=== PATIENT | female | born 1960 | race Caucasian/White ===

== ENCOUNTER 2021-01-15 00:53 | Inpatient (IN) | payer MEDICAID ==
[~2021-01-15] VITALS: Ht 154.9 cm; Wt 64.0 kg
[2021-01-15] MEDS ORDERED: QUET25TA PO (03:59)
[2021-01-15] MEDS ORDERED: OLAN5TAB2 PO (03:59)
[2021-01-15 06:13] LABS: GLUCOMETER DEV NAME(LOC) BV3S.; GLUCOSE,POINT OF CARE 202 MG/DL (70-110)
[2021-01-15 06:21] VITALS: BP 133/86
[2021-01-15] MEDS ORDERED: MAG HYDROX/AL HYDROX/SIMETH 30 ML SUSP UDCUP PO PRN (06:45)
[2021-01-15] MEDS ORDERED: DOCUSATE SODIUM 100 MG CAPSULE PO PRN ×2 (07:45→08:00)
[2021-01-15] MEDS ORDERED: MAGNESIUM HYDROXIDE SUSPENSION 30 ML UDCUP PO PRN (08:00)
[2021-01-15] MEDS ORDERED: GuaiFENesin/D-METHORPHAN [SUGAR-FREE] 200-20MG/10 ML SYRUP UDCUP PO PRN (08:00)
[2021-01-15] MEDS ORDERED: NICOTINE 14 MG/24 HOUR PATCH TD PRN (08:00)
[2021-01-15] MEDS ORDERED: LOPERAMIDE HCL 2 MG CAPSULE PO PRN (08:00)
[2021-01-15] MEDS ORDERED: MAG HYDROX/AL HYDROX/SIMETH ES 30 ML SUSPENSION UDCUP PO PRN (08:00)
[2021-01-15] MEDS ORDERED: ALBUTEROL SULFATE HFA 90 MCG/PUFF 8 GM INHALER IH PRN (08:00)
[2021-01-15] MEDS ORDERED: IBUPROFEN 400 MG TABLET PO PRN (08:00)
[2021-01-15] MEDS ORDERED: ACETAMINOPHEN 325 MG TABLET PO PRN (08:00)
[2021-01-15] MEDS ORDERED: PETROLATUM,WHITE 28 GM JELLY TP PRN (08:00)
[2021-01-15] MEDS ORDERED: CloNIDine HCL 0.1 MG TABLET PO PRN (08:00)
[2021-01-15 08:18] VITALS: BP 124/74
[2021-01-15] MEDS: OLANZapine 5 MG TABLET PO SCH ×2 (11:03→19:04)
[2021-01-15] MEDS: QUEtiapine FUMARATE 25 MG TABLET PO PRN ×2 (11:03→19:33)
[2021-01-15] MEDS ORDERED: INFLUENZA VIRUS VACCINE QVS 2020-21 (6MO+)/PF 60 MCG/0.5 ML SYRINGE IM ONE (12:00)
[2021-01-15] MEDS ORDERED: PNEUMOCOCCAL VACCINE POLYVALENT 0.5 ML VIAL [PPSV23] IM ONE (12:00)
[2021-01-15] MEDS ORDERED: QUEtiapine FUMARATE 100 MG TABLET PO ONE (13:45)
[2021-01-15 16:16] VITALS: BP 131/74
[2021-01-15] MEDS: LORazepam 1 MG TABLET PO PRN (19:31)
[2021-01-15 23:58] VITALS: BP 120/69
[2021-01-16 05:42] VITALS: BP 121/68
[2021-01-16 07:42] LABS: BASOPHILS % (AUTO) 0.7 % (0.0-2.0); EOSINOPHILS % (AUTO) 2.1 % (1.0-6.0); HEMATOCRIT 38.5 % (36-46); HEMOGLOBIN 12.9 g/dL (12.0-16.0); LYMPHOCYTES # (AUTO) 1.3 K/uL (1.0-4.8); LYMPHOCYTES % (AUTO) 26.3 % (22.0-44.0); MEAN CORPUSCULAR HEMOGLOBIN 30.9 pg (26.0-34.0); MEAN CORPUSCULAR HGB CONC 33.6 G/dL (31.0-37.0); MEAN CORPUSCULAR VOLUME 92 fL (80-100); MONOCYTES # (AUTO) 0.3 K/uL (0.1-1.0); MONOCYTES % (AUTO) 5.1 % (2.0-9.0); NEUTROPHILS # (AUTO) 3.3 K/uL (1.8-7.7); NEUTROPHILS % (AUTO) 65.8 % (40.0-70.0); PLATELET COUNT (AUTO) 166 K/uL (150-450); RED BLOOD CELL COUNT(AUTO) 4.19 MIL/uL (4.00-5.20); RED CELL DISTRIBUTION WIDTH 12.8 % (11.5-14.5)
[2021-01-16 07:54] LABS: HEMOGLOBIN A1C 8.4 % (3.8-5.6)
[2021-01-16 08:05] LABS: ALBUMIN 4.3 g/dL (3.4-5.0); BILIRUBIN,TOTAL 0.4 mg/dL (0.1-1.0); CALCIUM, TOTAL 9.7 mg/dL (8.8-10.5); CHOL/HDL RATIO 2.7 (3.9-5.7); CREATININE 1.32 mg/dL (0.60-1.30); FREE T4 (FREE THYROXINE) 1.03 ng/dL (0.76-1.46); POTASSIUM 5.2 mmol/L (3.5-5.1); THYROID STIMULATING HORMONE 3.22 uIU/mL (0.36-3.74); TOTAL PROTEIN, SERUM 8.4 g/dL (6.4-8.2)
[2021-01-16 08:09] VITALS: BP 153/77
[2021-01-16] MEDS: OLANZapine 5 MG TABLET PO SCH ×2 (08:24→16:07)
[2021-01-16] MEDS: LORazepam 1 MG TABLET PO PRN ×2 (08:24→16:08)
[2021-01-16] MEDS ORDERED: SODIUM POLYSTYRENE SULFONATE 15 GM/60 ML SUSPENSION BOTTLE PO ONE (09:00)
[2021-01-16] MEDS ORDERED: GLUCAGON,HUMAN RECOMBINANT 1 MG VIAL IM PRN (11:30)
[2021-01-16] MEDS ORDERED: INSULIN LISPRO 100 UNITS/ML SQ ONE ×2 (11:30→21:15)
[2021-01-16 12:26] LABS: GLUCOMETER DEV NAME(LOC) BV3S.; GLUCOSE,POINT OF CARE 457 MG/DL (70-110)
[2021-01-16 14:22] LABS: GLUCOMETER DEV NAME(LOC) BV3S.; GLUCOSE,POINT OF CARE 382 MG/DL (70-110)
[2021-01-16 14:22] LABS: GLUCOMETER DEV NAME(LOC) BV3S.; GLUCOSE,POINT OF CARE 108 MG/DL (70-110)
[2021-01-16 16:08] VITALS: BP 134/57
[2021-01-16 16:18] LABS: GLUCOMETER DEV NAME(LOC) BV3S.; GLUCOSE,POINT OF CARE 96 MG/DL (70-110)
[2021-01-16 20:55] LABS: GLUCOMETER DEV NAME(LOC) BV3S.; GLUCOSE,POINT OF CARE 430 MG/DL (70-110)
[2021-01-16] MEDS ORDERED: INSULIN GLARGINE,HUM.REC.ANLOG 100 UNITS/ML SQ ONE (21:15)
[2021-01-16] MEDS: ZOLPIDEM TARTRATE 10 MG TABLET PO PRN (22:05)
[2021-01-16 22:07] LABS: GLUCOMETER DEV NAME(LOC) BV3S.; GLUCOSE,POINT OF CARE 284 MG/DL (70-110)
[2021-01-16 22:54] LABS: GLUCOMETER DEV NAME(LOC) BV3S.; GLUCOSE,POINT OF CARE 116 MG/DL (70-110)
[2021-01-17 00:05] VITALS: BP 126/62
[2021-01-17] MEDS: QUEtiapine FUMARATE 25 MG TABLET PO PRN ×2 (03:01→21:10)
[2021-01-17] MEDS: INSULIN LISPRO 100 UNITS/ML SQ PRN ×2 (06:16→17:06)
[2021-01-17 06:22] LABS: GLUCOMETER DEV NAME(LOC) BV3S.; GLUCOSE,POINT OF CARE 247 MG/DL (70-110)
[2021-01-17 07:38] LABS: POTASSIUM 5.5 mmol/L (3.5-5.1)
[2021-01-17 07:59] LABS: HEMOGLOBIN A1C 8.3 % (3.8-5.6)
[2021-01-17] MEDS: LORazepam 1 MG TABLET PO PRN (08:02)
[2021-01-17] MEDS: OLANZapine 5 MG TABLET PO SCH (08:03)
[2021-01-17 08:08] VITALS: BP 155/85
[2021-01-17] MEDS ORDERED: DiphenhydrAMINE HCL 50 MG/ML VIAL ONE (09:58)
[2021-01-17] MEDS ORDERED: LORazepam 2 MG/ML VIAL IM ONE (10:00)
[2021-01-17] MEDS ORDERED: DiphenhydrAMINE HCL 50 MG/ML VIAL IM ONE (10:00)
[2021-01-17] MEDS ORDERED: SitaGLIPtin PHOSPHATE 25 MG TABLET PO SCH (10:00)
[2021-01-17] MEDS ORDERED: HALOPERIDOL LACTATE 5 MG/ML VIAL IM ONE (10:00)
[2021-01-17] MEDS: AmLODIPine BESYLATE 10 MG TABLET PO SCH (10:24)
[2021-01-17] MEDS ORDERED: INSULIN LISPRO 100 UNITS/ML SQ ONE (11:45)
[2021-01-17 11:53] LABS: GLUCOMETER DEV NAME(LOC) BV3S.; GLUCOSE,POINT OF CARE 511 MG/DL (70-110)
[2021-01-17 15:05] LABS: GLUCOMETER DEV NAME(LOC) BV3S.; GLUCOSE,POINT OF CARE 102 MG/DL (70-110)
[2021-01-17 16:03] VITALS: BP 135/65
[2021-01-17] MEDS: GlipiZIDE 10 MG TABLET PO SCH (16:18)
[2021-01-17] MEDS: SitaGLIPtin PHOSPHATE 25 MG TABLET PO SCH (16:19)
[2021-01-17 16:29] LABS: GLUCOMETER DEV NAME(LOC) BV3S.; GLUCOSE,POINT OF CARE 147 MG/DL (70-110)
[2021-01-17] MEDS: OLANZapine 10 MG TABLET PO SCH (20:34)
[2021-01-17] MEDS: ZOLPIDEM TARTRATE 10 MG TABLET PO PRN (20:34)
[2021-01-17 20:42] LABS: GLUCOMETER DEV NAME(LOC) BV3S.; GLUCOSE,POINT OF CARE 105 MG/DL (70-110)
[2021-01-17] MEDS ORDERED: INSULIN GLARGINE,HUM.REC.ANLOG 100 UNITS/ML SQ SCH (21:00)
[2021-01-18 01:03] VITALS: BP 122/74
[2021-01-18] MEDS: ONDANSETRON HCL 4 MG TABLET PO PRN (05:32)
[2021-01-18] MEDS: INSULIN LISPRO 100 UNITS/ML SQ PRN ×3 (05:45→20:45)
[2021-01-18 05:51] LABS: GLUCOMETER DEV NAME(LOC) BV3S.; GLUCOSE,POINT OF CARE 339 MG/DL (70-110)
[2021-01-18] MEDS: GlipiZIDE 10 MG TABLET PO SCH ×2 (06:42→16:14)
[2021-01-18] MEDS: LORazepam 1 MG TABLET PO PRN ×3 (06:57→21:14)
[2021-01-18 08:01] LABS: CALCIUM, TOTAL 9.4 mg/dL (8.8-10.5); CREATININE 1.36 mg/dL (0.60-1.30); POTASSIUM 4.9 mmol/L (3.5-5.1)
[2021-01-18] MEDS: AmLODIPine BESYLATE 10 MG TABLET PO SCH (08:02)
[2021-01-18] MEDS: SitaGLIPtin PHOSPHATE 25 MG TABLET PO SCH (08:02)
[2021-01-18] MEDS: QUEtiapine FUMARATE 25 MG TABLET PO PRN ×2 (08:02→15:55)
[2021-01-18 08:06] VITALS: BP 144/79
[2021-01-18 11:50] LABS: GLUCOMETER DEV NAME(LOC) BV3S.; GLUCOSE,POINT OF CARE 449 MG/DL (70-110)
[2021-01-18] MEDS ORDERED: INSULIN LISPRO 100 UNITS/ML SQ ONE (12:15)
[2021-01-18] MEDS ORDERED: DEXTROSE 50%-WATER 25 GM/50 ML SYRINGE IVP PRN (12:30)
[2021-01-18 16:05] VITALS: BP 112/70
[2021-01-18 16:57] LABS: GLUCOMETER DEV NAME(LOC) BV3S.; GLUCOSE,POINT OF CARE 194 MG/DL (70-110)
[2021-01-18 20:23] LABS: GLUCOMETER DEV NAME(LOC) BV3S.; GLUCOSE,POINT OF CARE 259 MG/DL (70-110)
[2021-01-18] MEDS: OLANZapine 10 MG TABLET PO SCH (20:41)
[2021-01-18] MEDS: QUEtiapine FUMARATE 300 MG TABLET PO SCH (20:41)
[2021-01-18] MEDS: LamoTRIgine 100 MG TABLET PO SCH (20:41)
[2021-01-18] MEDS ORDERED: INSULIN GLARGINE,HUM.REC.ANLOG 100 UNITS/ML SQ SCH (21:00)
[2021-01-19 00:59] VITALS: BP 104/76
[2021-01-19] MEDS: ONDANSETRON HCL 4 MG TABLET PO PRN (05:52)
[2021-01-19] MEDS: GlipiZIDE 10 MG TABLET PO SCH ×2 (05:52→16:27)
[2021-01-19] MEDS: LEVOTHYROXINE SODIUM 50 MCG TABLET PO SCH (05:52)
[2021-01-19] MEDS: INSULIN LISPRO 100 UNITS/ML SQ PRN ×3 (05:58→21:53)
[2021-01-19 06:07] LABS: GLUCOMETER DEV NAME(LOC) BV3S.; GLUCOSE,POINT OF CARE 286 MG/DL (70-110)
[2021-01-19 08:00] VITALS: BP 112/70
[2021-01-19] MEDS: AmLODIPine BESYLATE 10 MG TABLET PO SCH (08:08)
[2021-01-19] MEDS: PIOGLITAZONE HCL 15 MG TABLET PO SCH (08:08)
[2021-01-19] MEDS: SitaGLIPtin PHOSPHATE 25 MG TABLET PO SCH (08:08)
[2021-01-19] MEDS ORDERED: INSULIN LISPRO 100 UNITS/ML SQ ONE (11:00)
[2021-01-19 12:16] LABS: GLUCOMETER DEV NAME(LOC) BV3S.; GLUCOSE,POINT OF CARE 287 MG/DL (70-110)
[2021-01-19 12:16] LABS: GLUCOMETER DEV NAME(LOC) BV3S.; GLUCOSE,POINT OF CARE 442 MG/DL (70-110)
[2021-01-19] MEDS: LORazepam 1 MG TABLET PO PRN ×3 (12:56→18:46)
[2021-01-19] MEDS: QUEtiapine FUMARATE 25 MG TABLET PO PRN (13:02)
[2021-01-19] MEDS: OLANZapine 10 MG TABLET PO SCH ×2 (14:34→21:48)
[2021-01-19 16:19] VITALS: BP 130/60
[2021-01-19 16:57] LABS: GLUCOMETER DEV NAME(LOC) BV3S.; GLUCOSE,POINT OF CARE 318 MG/DL (70-110)
[2021-01-19 21:35] LABS: GLUCOMETER DEV NAME(LOC) BV3S.; GLUCOSE,POINT OF CARE 238 MG/DL (70-110)
[2021-01-19] MEDS: LamoTRIgine 100 MG TABLET PO SCH (21:48)
[2021-01-19] MEDS: QUEtiapine FUMARATE 300 MG TABLET PO SCH (21:48)
[2021-01-19] MEDS: INSULIN GLARGINE,HUM.REC.ANLOG 100 UNITS/ML SQ SCH (21:53)
[2021-01-20 00:45] VITALS: BP 124/63
[2021-01-20] MEDS: ONDANSETRON HCL 4 MG TABLET PO PRN ×3 (04:43→13:00)
[2021-01-20] MEDS: LEVOTHYROXINE SODIUM 50 MCG TABLET PO SCH (06:20)
[2021-01-20 06:27] LABS: GLUCOMETER DEV NAME(LOC) BV3S.; GLUCOSE,POINT OF CARE 162 MG/DL (70-110)
[2021-01-20] MEDS: INSULIN LISPRO 100 UNITS/ML SQ PRN ×4 (06:30→20:25)
[2021-01-20] MEDS: GlipiZIDE 10 MG TABLET PO SCH ×2 (06:38→16:12)
[2021-01-20] MEDS: AmLODIPine BESYLATE 10 MG TABLET PO SCH (08:05)
[2021-01-20] MEDS: LORazepam 1 MG TABLET PO PRN ×3 (08:06→16:12)
[2021-01-20] MEDS: SitaGLIPtin PHOSPHATE 25 MG TABLET PO SCH (08:06)
[2021-01-20] MEDS: PIOGLITAZONE HCL 15 MG TABLET PO SCH (08:06)
[2021-01-20] MEDS: OLANZapine 10 MG TABLET PO SCH ×2 (08:06→19:34)
[2021-01-20 08:30] VITALS: BP 120/74
[2021-01-20] MEDS: QUEtiapine FUMARATE 25 MG TABLET PO PRN (08:31)
[2021-01-20 09:11] LABS: CALCIUM, TOTAL 9.6 mg/dL (8.8-10.5); CREATININE 1.1 mg/dL (0.60-1.30); POTASSIUM 5.6 mmol/L (3.5-5.1)
[2021-01-20 11:49] LABS: GLUCOMETER DEV NAME(LOC) BV3S.; GLUCOSE,POINT OF CARE 360 MG/DL (70-110)
[2021-01-20 16:51] LABS: GLUCOMETER DEV NAME(LOC) BV3S.; GLUCOSE,POINT OF CARE 231 MG/DL (70-110)
[2021-01-20] MEDS: QUEtiapine FUMARATE 300 MG TABLET PO SCH (19:34)
[2021-01-20] MEDS: LamoTRIgine 100 MG TABLET PO SCH (19:34)
[2021-01-20 20:23] LABS: GLUCOMETER DEV NAME(LOC) BV3S.; GLUCOSE,POINT OF CARE 295 MG/DL (70-110)
[2021-01-20] MEDS: INSULIN GLARGINE,HUM.REC.ANLOG 100 UNITS/ML SQ SCH (20:25)
[2021-01-20] MEDS: SODIUM POLYSTYRENE SULFONATE 15 GM/60 ML SUSPENSION BOTTLE PO ONE ×2 (20:43→20:50)
[2021-01-20] MEDS: ZOLPIDEM TARTRATE 10 MG TABLET PO PRN (21:47)
[2021-01-21 00:17] VITALS: BP 114/70
[2021-01-21 06:11] LABS: GLUCOMETER DEV NAME(LOC) BV3S.; GLUCOSE,POINT OF CARE 226 MG/DL (70-110)
[2021-01-21] MEDS: ONDANSETRON HCL 4 MG TABLET PO PRN ×2 (06:43→14:44)
[2021-01-21] MEDS: GlipiZIDE 10 MG TABLET PO SCH ×2 (06:50→16:21)
[2021-01-21] MEDS: LEVOTHYROXINE SODIUM 50 MCG TABLET PO SCH (06:50)
[2021-01-21] MEDS: INSULIN LISPRO 100 UNITS/ML SQ PRN ×4 (06:52→20:28)
[2021-01-21 08:14] VITALS: BP 110/54
[2021-01-21 08:30] VITALS: BP 114/70
[2021-01-21] MEDS: PIOGLITAZONE HCL 15 MG TABLET PO SCH (08:34)
[2021-01-21] MEDS: AmLODIPine BESYLATE 10 MG TABLET PO SCH (08:34)
[2021-01-21] MEDS: SitaGLIPtin PHOSPHATE 25 MG TABLET PO SCH (08:34)
[2021-01-21] MEDS: OLANZapine 10 MG TABLET PO SCH ×2 (08:34→20:07)
[2021-01-21] MEDS: LORazepam 1 MG TABLET PO PRN ×2 (08:54→13:07)
[2021-01-21] MEDS: QUEtiapine FUMARATE 25 MG TABLET PO PRN (09:26)
[2021-01-21 11:58] LABS: GLUCOMETER DEV NAME(LOC) BV3S.; GLUCOSE,POINT OF CARE 358 MG/DL (70-110)
[2021-01-21 16:24] VITALS: BP 133/62
[2021-01-21 16:39] LABS: GLUCOMETER DEV NAME(LOC) BV3S.; GLUCOSE,POINT OF CARE 163 MG/DL (70-110)
[2021-01-21] MEDS: QUEtiapine FUMARATE 300 MG TABLET PO SCH (20:06)
[2021-01-21] MEDS: LamoTRIgine 100 MG TABLET PO SCH (20:07)
[2021-01-21] MEDS: ZOLPIDEM TARTRATE 10 MG TABLET PO PRN (20:07)
[2021-01-21 20:27] LABS: GLUCOMETER DEV NAME(LOC) BV3S.; GLUCOSE,POINT OF CARE 181 MG/DL (70-110)
[2021-01-21] MEDS: INSULIN GLARGINE,HUM.REC.ANLOG 100 UNITS/ML SQ SCH (20:27)
[2021-01-22 02:04] VITALS: BP 124/68
[2021-01-22 06:25] LABS: GLUCOMETER DEV NAME(LOC) BV3S.; GLUCOSE,POINT OF CARE 173 MG/DL (70-110)
[2021-01-22] MEDS: GlipiZIDE 10 MG TABLET PO SCH ×2 (06:45→16:08)
[2021-01-22] MEDS: LEVOTHYROXINE SODIUM 50 MCG TABLET PO SCH (06:45)
[2021-01-22] MEDS: INSULIN LISPRO 100 UNITS/ML SQ PRN ×3 (06:47→21:33)
[2021-01-22 08:02] VITALS: BP 146/71
[2021-01-22] MEDS: AmLODIPine BESYLATE 10 MG TABLET PO SCH (08:05)
[2021-01-22] MEDS: SitaGLIPtin PHOSPHATE 25 MG TABLET PO SCH (08:05)
[2021-01-22] MEDS: OLANZapine 10 MG TABLET PO SCH ×2 (08:05→21:17)
[2021-01-22] MEDS: PIOGLITAZONE HCL 15 MG TABLET PO SCH (08:05)
[2021-01-22 11:55] LABS: GLUCOMETER DEV NAME(LOC) BV3S.; GLUCOSE,POINT OF CARE 340 MG/DL (70-110)
[2021-01-22] MEDS: LORazepam 1 MG TABLET PO PRN (13:19)
[2021-01-22 16:10] VITALS: BP 124/67
[2021-01-22 16:21] LABS: GLUCOMETER DEV NAME(LOC) BV3S.; GLUCOSE,POINT OF CARE 117 MG/DL (70-110)
[2021-01-22] MEDS: ONDANSETRON HCL 4 MG TABLET PO PRN (17:33)
[2021-01-22] MEDS: LamoTRIgine 100 MG TABLET PO SCH (21:17)
[2021-01-22] MEDS: QUEtiapine FUMARATE 300 MG TABLET PO SCH (21:17)
[2021-01-22] MEDS: INSULIN GLARGINE,HUM.REC.ANLOG 100 UNITS/ML SQ SCH (21:30)
[2021-01-22 21:46] LABS: GLUCOMETER DEV NAME(LOC) BV3S.; GLUCOSE,POINT OF CARE 315 MG/DL (70-110)
[2021-01-22] MEDS: ZOLPIDEM TARTRATE 10 MG TABLET PO PRN (23:54)
[2021-01-23 00:14] VITALS: BP 114/66
[2021-01-23] MEDS: LEVOTHYROXINE SODIUM 50 MCG TABLET PO SCH (06:12)
[2021-01-23] MEDS: GlipiZIDE 10 MG TABLET PO SCH ×2 (06:12→16:30)
[2021-01-23] MEDS: ONDANSETRON HCL 4 MG TABLET PO PRN (06:36)
[2021-01-23] MEDS: INSULIN LISPRO 100 UNITS/ML SQ PRN ×4 (06:51→21:05)
[2021-01-23 06:56] LABS: GLUCOMETER DEV NAME(LOC) BV3S.; GLUCOSE,POINT OF CARE 169 MG/DL (70-110)
[2021-01-23] MEDS: PIOGLITAZONE HCL 15 MG TABLET PO SCH (08:10)
[2021-01-23] MEDS: SitaGLIPtin PHOSPHATE 25 MG TABLET PO SCH (08:10)
[2021-01-23] MEDS: OLANZapine 10 MG TABLET PO SCH ×2 (08:10→20:07)
[2021-01-23] MEDS: AmLODIPine BESYLATE 10 MG TABLET PO SCH (08:10)
[2021-01-23] MEDS: LORazepam 1 MG TABLET PO PRN (08:11)
[2021-01-23 08:24] VITALS: BP 153/77
[2021-01-23] MEDS: QUEtiapine FUMARATE 25 MG TABLET PO PRN (08:26)
[2021-01-23 09:30] VITALS: BP 134/72
[2021-01-23 12:26] LABS: GLUCOMETER DEV NAME(LOC) BV3S.; GLUCOSE,POINT OF CARE 131 MG/DL (70-110)
[2021-01-23 16:16] VITALS: BP 141/91
[2021-01-23 16:36] LABS: GLUCOMETER DEV NAME(LOC) BV3S.; GLUCOSE,POINT OF CARE 251 MG/DL (70-110)
[2021-01-23] MEDS: QUEtiapine FUMARATE 300 MG TABLET PO SCH (20:07)
[2021-01-23] MEDS: LamoTRIgine 100 MG TABLET PO SCH (20:07)
[2021-01-23] MEDS ORDERED: LAMO25TA25 PO (20:41)
[2021-01-23] MEDS ORDERED: LEVO50TA11 PO (20:41)
[2021-01-23] MEDS ORDERED: SITA25 PO (20:41)
[2021-01-23] MEDS ORDERED: PIOG15TA6 PO (20:41)
[2021-01-23] MEDS ORDERED: GLIP10 PO (20:41)
[2021-01-23] MEDS ORDERED: AMLO-258 PO (20:41)
[2021-01-23] MEDS ORDERED: QUET300T2 PO (20:41)
[2021-01-23] MEDS ORDERED: OLAN10TA3 PO ×2 (20:41)
[2021-01-23 20:55] LABS: GLUCOMETER DEV NAME(LOC) BV3S.; GLUCOSE,POINT OF CARE 194 MG/DL (70-110)
[2021-01-23] MEDS: INSULIN GLARGINE,HUM.REC.ANLOG 100 UNITS/ML SQ SCH (21:10)
[2021-01-24 00:43] VITALS: BP 124/86
[2021-01-24 06:37] LABS: GLUCOMETER DEV NAME(LOC) BV3S.; GLUCOSE,POINT OF CARE 154 MG/DL (70-110)
[2021-01-24] MEDS: GlipiZIDE 10 MG TABLET PO SCH ×2 (06:44→16:07)
[2021-01-24] MEDS: LEVOTHYROXINE SODIUM 50 MCG TABLET PO SCH (06:44)
[2021-01-24] MEDS: INSULIN LISPRO 100 UNITS/ML SQ PRN ×4 (06:47→21:06)
[2021-01-24] MEDS: PIOGLITAZONE HCL 15 MG TABLET PO SCH (08:12)
[2021-01-24] MEDS: AmLODIPine BESYLATE 10 MG TABLET PO SCH (08:12)
[2021-01-24] MEDS: OLANZapine 10 MG TABLET PO SCH ×2 (08:12→20:59)
[2021-01-24] MEDS: SitaGLIPtin PHOSPHATE 25 MG TABLET PO SCH (08:12)
[2021-01-24 08:31] VITALS: BP 145/63
[2021-01-24] MEDS: QUEtiapine FUMARATE 25 MG TABLET PO PRN (09:21)
[2021-01-24] MEDS: LORazepam 1 MG TABLET PO PRN (09:21)
[2021-01-24 12:12] LABS: GLUCOMETER DEV NAME(LOC) BV3S.; GLUCOSE,POINT OF CARE 179 MG/DL (70-110)
[2021-01-24 14:29] VITALS: BP 134/70
[2021-01-24 16:18] LABS: GLUCOMETER DEV NAME(LOC) BV3S.; GLUCOSE,POINT OF CARE 200 MG/DL (70-110)
[2021-01-24 18:36] VITALS: BP 128/64
[2021-01-24 20:27] LABS: GLUCOMETER DEV NAME(LOC) BV3S.; GLUCOSE,POINT OF CARE 154 MG/DL (70-110)
[2021-01-24] MEDS: LamoTRIgine 100 MG TABLET PO SCH (20:59)
[2021-01-24] MEDS: QUEtiapine FUMARATE 300 MG TABLET PO SCH (20:59)
[2021-01-24] MEDS: INSULIN GLARGINE,HUM.REC.ANLOG 100 UNITS/ML SQ SCH (21:05)
[2021-01-25 00:55] VITALS: BP 122/66
[2021-01-25] MEDS: LORazepam 1 MG TABLET PO PRN (04:58)
[2021-01-25] MEDS: GlipiZIDE 10 MG TABLET PO SCH (06:18)
[2021-01-25] MEDS: LEVOTHYROXINE SODIUM 50 MCG TABLET PO SCH (06:18)
[2021-01-25] MEDS: INSULIN LISPRO 100 UNITS/ML SQ PRN ×2 (06:37→12:09)
[2021-01-25 06:42] LABS: GLUCOMETER DEV NAME(LOC) BV3S.; GLUCOSE,POINT OF CARE 238 MG/DL (70-110)
[2021-01-25] MEDS ORDERED: INSLAN SQ (07:55)
[2021-01-25] MEDS ORDERED: QUET300T2 PO (07:55)
[2021-01-25] MEDS: AmLODIPine BESYLATE 10 MG TABLET PO SCH (08:10)
[2021-01-25] MEDS: SitaGLIPtin PHOSPHATE 25 MG TABLET PO SCH (08:10)
[2021-01-25] MEDS: PIOGLITAZONE HCL 15 MG TABLET PO SCH (08:10)
[2021-01-25] MEDS: OLANZapine 10 MG TABLET PO SCH (08:11)
[2021-01-25 08:22] VITALS: BP 166/82
[2021-01-25 09:00] VITALS: BP 138/88
[2021-01-25 12:28] LABS: GLUCOMETER DEV NAME(LOC) BV3S.; GLUCOSE,POINT OF CARE 144 MG/DL (70-110)
== END 2021-01-25 12:30 | disposition home or self-care (01) | DRG 753 ==
LOC: B3A 03:03
PROVIDERS: ADMIT Psychiatry & Neurology Child & Adolescent Psychiatry; ATTEND Psychiatry & Neurology Child & Adolescent Psychiatry
DX: F31.9 Bipolar disorder, unspecified (principal); E03.9 Hypothyroidism, unspecified; E11.65 Type 2 diabetes mellitus with hyperglycemia; E87.5 Hyperkalemia; G40.909 Epilepsy, unspecified, not intractable, without status epilepticus; I10 Essential (primary) hypertension; N17.9 Acute kidney failure, unspecified; F41.9 Anxiety disorder, unspecified; Z88.0 Allergy status to penicillin; Z88.8 Allergy status to other drugs, medicaments and biological substances; Z28.21 Immunization not carried out because of patient refusal; Z79.899 Other long term (current) drug therapy
CPT/HCPCS: 83036; 84132; 84439; 84443; J1200; J1630; J1815; J2060; Q0162